=== PATIENT | male | born 1985 | race Two or more races ===

== ENCOUNTER → 2017-11-25 | Outpatient (CLI) | payer OTHER | END | disposition home or self-care (01) | LOC: HKI 15:33 | DX: M23.8X2 Other internal derangements of left knee (principal) | CPT/HCPCS: Z7500 ==

== ENCOUNTER → 2017-12-02 | Outpatient (CLI) | payer OTHER | END | disposition home or self-care (01) | LOC: HKI 13:20 | DX: S80.02XD Contusion of left knee, subsequent encounter (principal); X58.XXXD Exposure to other specified factors, subsequent encounter | CPT/HCPCS: Z7500 ==

== ENCOUNTER → 2017-12-30 | Outpatient (CLI) | payer OTHER | END | disposition home or self-care (01) | LOC: HKI 13:29 | DX: Z09 Encounter for follow-up examination after completed treatment for conditions other than malignant neoplasm (principal); M25.562 Pain in left knee; M25.362 Other instability, left knee | CPT/HCPCS: Z7500 ==